=== PATIENT | male | born 1965 | race Caucasian/White ===

== ENCOUNTER 2022-10-12 09:38 | Emergency (ER) | payer BC ==
[~2022-10-12] VITALS: Ht 180.3 cm; Wt 108.9 kg
[2022-10-12 09:46] VITALS: BP 171/111
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
[2022-10-12] MEDS ORDERED: ACETAMINOPHEN EXTRA STRENGTH 500 MG TAB PO ONE (10:30)
[2022-10-12] MEDS ORDERED: CEPH-588 PO (12:50)
[2022-10-12] MEDS ORDERED: ACET-11169 PO (12:50)
[2022-10-12 13:06] VITALS: BP 144/80
--- NOTE | 2022-10-12 13:07 | NUR ---
Patient discharged with v/s stable. Written and verbal after care instructions given and explained. Patient alert, oriented and verbalized understanding of instructions. Ambulatory with steady gait. All questions addressed prior to discharge. ID band removed. Patient advised to follow up with PMD. Rx of KEFLEX, TYLENOL given. Patient educated on indication of medication including possible reaction and side effects. Opportunity to ask questions provided and answered.
== END 2022-10-12 13:06 | disposition home or self-care (01) ==
LOC: MED 09:38
DX: S20.20XA Contusion of thorax, unspecified, initial encounter (principal); S80.12XA Contusion of left lower leg, initial encounter; L03.116 Cellulitis of left lower limb; R60.0 Localized edema; E11.9 Type 2 diabetes mellitus without complications; I10 Essential (primary) hypertension; Z79.01 Long term (current) use of anticoagulants; Z79.899 Other long term (current) drug therapy; Z98.890 Other specified postprocedural states; W19.XXXA Unspecified fall, initial encounter; Y93.89 Activity, other specified; Y92.89 Other specified places as the place of occurrence of the external cause; Y99.8 Other external cause status
CPT/HCPCS: 71101; 72170; 99284